=== PATIENT | male | born 1955 | race Caucasian/White ===

== ENCOUNTER 2018-08-11 07:38 | Emergency (ER) | payer BC, OTHER ==
[2018-08-11 08:47] LABS: ADD MAN DIFF? NO
[2018-08-11 08:54] LABS: WHITE BLOOD COUNT 8.6 10^3/ul (4.8-10.8)
[2018-08-11 08:54] LABS: BASOPHIL # 0.1 10^3/ul (0.0-0.1); BASOPHILS % 0.7 % (0.0-2.0); EOSINOPHILS # 0.3 10^3/ul (0.0-0.5); EOSINOPHILS % 3.1 % (0.0-7.0); HEMATOCRIT 46.9 % (42.0-52.0); HEMOGLOBIN 15.4 g/dl (14.0-18.0); LYMPHOCYTES # 1.6 10^3/ul (0.8-2.9); MEAN CORPUSCULAR HEMOGLOBIN 28.5 pg (29.0-33.0); MEAN CORPUSCULAR HGB CONC 32.8 g/dl (32.0-37.0); MEAN CORPUSCULAR VOLUME 86.9 fl (82.0-101.0); MEAN PLATELET VOLUME 10.4 fl (7.4-10.4); MONOCYTE # 0.5 10^3/ul (0.3-0.9); MONOCYTES % 5.4 % (0.0-11.0); NEUTROPHIL # 6.1 10^3/ul (1.6-7.5); NEUTROPHILS % 71.5 % (39.0-77.0); PLATELET COUNT 258 10^3/UL (140-415); RED CELL DISTRIBUTION WIDTH 13.9 % (11.5-14.5)
[2018-08-11] MEDS: ONDANSETRON 4 MG INJ IV ×2 (08:56→11:18)
[2018-08-11] MEDS: SOD CHLORIDE 0.9% 1,000 ML IV ×3 (08:56→11:17)
[2018-08-11] MEDS: KETOROLAC 30 MG INJ IV (08:57)
[2018-08-11] MEDS: morphine 4 MG/ML VIAL IV (08:57)
[2018-08-11 09:26] LABS: ALANINE AMINOTRANSFERASE 32 IU/L (13-69); ALBUMIN 4.1 g/dl (3.3-4.9); ALBUMIN/GLOBULIN RATIO 1.32; ALKALINE PHOSPHATASE 67 IU/L (42-121); AMYLASE 100 U/L (11-123); ANION GAP 14 (8-16); ASPARTATE AMINO TRANSFERASE 26 IU/L (15-46); BILIRUBIN,INDIRECT 0.3 mg/dl (0-1.1); BILIRUBIN,TOTAL 0.3 mg/dl (0.2-1.3); BLOOD UREA NITROGEN 20 mg/dl (7-20); CALCIUM 9.9 mg/dl (8.4-10.2); CARBON DIOXIDE 28 mmol/L (21-31); CHLORIDE 102 mmol/L (97-110); CREATININE 1.17 mg/dl (0.61-1.24); GLUCOSE 105 mg/dl (70-220); LIPASE 154 U/L (23-300); POTASSIUM 4.4 mmol/L (3.5-5.1); SODIUM 140 mmol/L (135-144); TOTAL PROTEIN 7.2 g/dl (6.1-8.1)
[2018-08-11] MEDS: TAMSULOSIN (SR) 0.4 MG CAP PO (09:55)
[2018-08-11 09:56] LABS: INR 0.93; PARTIAL THROMBOPLASTIN TIME 28.3 Sec (25.0-35.0); PROTIME 12.6 Sec (11.9-14.9)
[2018-08-11 10:29] LABS: ADD UMIC YES; UR ASCORBIC ACID NEGATIVE (NEGATIVE); UR BILIRUBIN (Dip) NEGATIVE (NEGATIVE); UR BLOOD (Dip) 3+ mg/dL (NEGATIVE); UR BUDDING YEAST FEW /HPF (NONE SEEN); UR CALCIUM OXALATE CRYSTAL FEW /HPF (NONE SEEN); UR CLARITY CLOUDY (CLEAR); UR COLOR AMBER (YELLOW); UR GLUCOSE (Dip) NEGATIVE (NEGATIVE); UR KETONES (Dip) 1+ mg/dL (NEGATIVE); UR LEUKOCYTE ESTERASE (Dip) NEGATIVE Leu/ul (NEGATIVE); UR MUCUS FEW /HPF (NONE SEEN); UR NITRITE (Dip) NEGATIVE (NEGATIVE); UR RBC > 182 /HPF (0-5); UR SPECIFIC GRAVITY (Dip) 1.032 (1.003-1.030); UR TOTAL PROTEIN (Dip) 2+ mg/dl (NEGATIVE); UR UROBILINOGEN (Dip) NEGATIVE (NEGATIVE); UR WBC 38 /HPF (0-5)
[2018-08-11] MEDS: HYDROmorphONE 1 MG/ML SYG IV (11:18)
== END 2018-08-11 13:33 | disposition home or self-care (01) ==
LOC: E/R 07:38
DX: N20.0 Calculus of kidney (principal)
CPT/HCPCS: 74176; 80053; 81001; 82150; 83690; 85025; 85610; 85730; 87086; 96374; 96375; 96376; 99285-25